=== PATIENT | male | born 1955 | race Caucasian/White ===

== ENCOUNTER 2024-08-22 22:17 | Emergency (ER) | payer OTHER ==
[2024-08-22 22:26] VITALS: RESP 18; BMI 27.6
[2024-08-22 22:55] LABS: HEMATOCRIT 31.7 % (40.1-51.0); HEMOGLOBIN 10.1 g/dL (13.7-17.5); MCHC 31.9 g/dl (32.3-36.5); MEAN CELL VOLUME 90.6 fl (79.0-92.2); MEAN PLT VOLUME 9.1 fl (9.4-12.4); PLATELET COUNT 364 x10^3/uL (163-337); RDW 16.2 % (12.2-16.4)
[2024-08-22 22:57] LABS: VENOUS BASE EXCESS 3.8 mmol/L (-2-2); VENOUS PH 7.461 (7.310-7.410)
[2024-08-22 23:21] LABS: CHLORIDE 99 mmol/L (98-107); SODIUM 127 mmol/L (136-145)
[2024-08-22 23:23] LABS: CALCIUM 7.7 mg/dL (8.5-10.1); CO2 28 mmol/L (21-32)
[2024-08-22 23:24] LABS: BLOOD UREA NITROGEN 18.2 mg/dL (7-18); GLUCOSE,RANDOM 94 mg/dL (74-106)
[2024-08-22 23:27] LABS: CREATININE 0.9 mg/dL (0.55-1.3); SGOT/AST 148 U/L (15-37)
[2024-08-22 23:28] LABS: BILIRUBIN,TOTAL 0.4 mg/dL (0.2-1); TOT PROT 6.6 g/dl (6.4-8.2)
[2024-08-22 23:29] LABS: ALK PHOS 73 U/L (45-117)
[2024-08-22 23:30] LABS: ANION GAP 1 mmol/L (4-13); POTASSIUM 9.4 mmol/L (3.5-5.1); SGPT/ALT 36 U/L (13-61)
[2024-08-22] MEDS ORDERED: ACETAMINOPHEN INJECTION 100 ML ONE (23:47)
[2024-08-22] MEDS: ACETAMINOPHEN 1000 MG/100 ML BAG IVPB ONE (23:49)
[2024-08-23 00:19] LABS: HIV INTERPRETATION NEGATIVE (NEGATIVE)
[2024-08-23 00:20] LABS: HCV DIAGNOSTIC IN-HOUSE W/RFLX NON-REACTIVE (NONREACTIVE)
[2024-08-23 00:43] LABS: POTASSIUM 4.2 mmol/L (3.5-5.1)
[2024-08-23 00:45] LABS: ALBUMIN 2.2 g/dl (3.4-5.0); BLOOD UREA NITROGEN 18.3 mg/dL (7-18)
[2024-08-23 00:49] LABS: CREATININE 0.8 mg/dL (0.55-1.3)
[2024-08-23 00:50] VITALS: BP 101/65; PULSE 67
[2024-08-23 00:50] LABS: BILIRUBIN,TOTAL 0.4 mg/dL (0.2-1); TOT PROT 5.9 g/dl (6.4-8.2)
[2024-08-23 01:01] VITALS: TEMP 97.6
== END 2024-08-23 01:45 | disposition home or self-care (01) ==
LOC: JER 22:17
PROC: 3E033NZ Introduction of Analgesics, Hypnotics, Sedatives into Peripheral Vein, Percutaneous Approach (ICD-10-PCS; principal; 2024-08-22)
DX: J44.9 Chronic obstructive pulmonary disease, unspecified (principal); R06.02 Shortness of breath; R50.9 Fever, unspecified
CPT/HCPCS: 0241U-QW; 36415; 71045-TC-FY; 80053; 82803; 84484; 85027; 86803; 87389; 96374; 99284-25; J0131